=== PATIENT | male | born 1995 | race Caucasian/White ===

== ENCOUNTER 2018-08-12 06:44 | Day surgery (SDC) | payer OTHER, SELFPAY ==
[2014-02-02 13:20] VITALS: BMI 28.8
[2018-08-06 11:36] LABS: AST(SGOT) 18 U/L (15-37); Alanine Aminotransfer ALT/SGPT 32 U/L (16-61); Albumin, Serum 4.4 g/dL (3.2-5.0); Alkaline Phosphatase 83 U/L (45-117); Bilirubin, Direct 0.11 mg/dL (0.00-0.30); Globulin 3.6 g/dL (2.2-4.2)
[2018-08-06 11:37] LABS: Hematocrit 48.4 % (40-54); Hemoglobin 16.6 g/dl (13.0-16.5); Mean Corpuscular Volume 85.8 fL (80-94); Mean Platelet Vol. 10.6 fl (6.2-12.0); Platelet Count 179 K/mm3 (150-450); RBC Distribution Width SD 37.8 fl (35.1-43.9); Red Blood Count 5.64 M/mm3 (4.6-6.2); White Blood Count 5.8 K/mm3 (4.4-11.0)
[2018-08-06 11:38] LABS: Mean Corp Hgb Conc 34.2 g/gl (32-36); Mean Corpuscular Hgb 29.4 pg (27.0-32.0); Scan Indicated on CBC? Y/N NO
[2018-08-06 11:40] LABS: International Normalized Ratio 1.1; Prothrombin Time (Protime)PT. 13.7 SECONDS (11.7-14.9)
[2018-08-06 11:41] LABS: Partial Thromboplast Time 34.7 Seconds (24.1-36.2)
[2018-08-12] VITALS (7 sets, daily range): BP systolic 122–144; BP diastolic 70–98; PULSE 58–72; RESP 16; TEMP 35.9–36.9; O2SAT 92–98; BMI 36.5
[2018-08-12] MEDS: Oxymetazoline 0.05% 1 SPRAY SPRAY.BTL 15 SPRAY (09:25)
--- NOTE | 2018-08-12 09:59 | PCM.OPRPT ---
Report of Operation Date of Procedure: 08/12/18 Pre-Operative Diagnosis: Nasal airway obstruction. Deviated nasal septum. Hypertrophy of the inferior turbinates Post-Operative Diagnosis: Same Surgery/Procedure Performed:: Septoplasty. Resection of posterior end of inferior turbinate bilateral Description of Surgical Findings:: Procedure the patient was placed supine on the operating room table and after satisfactory endotracheal general anesthesia had been obtained sterile head drapes were applied and the patient draped in the usual sterile manner. The nasal cavities were examined and the septum was noted to be totally dislocated into the left nasal cavity. Both inferior turbinates were noted to be markedly hypertrophic. 1% Xylocaine plain mixed with epinephrine was infiltrated into the mucoperichondrium covering the left side of the nasal septum. A left [place] incision was made and the mucoperichondrium elevated from the quadrilateral cartilage and the mucoperiosteum elevated from the perpendicular plate of the ethmoid bone and the vomer the perpendicular plate of ethmoid bone was fractured and moved to the patient's right side for a distance of 1 cm. The septum was detached from the ethmoid bone and from the vomer and moved to the midline. FloSeal was painted on the inner surface of the mucoperichondrium and mucoperiosteum. The mucoperichondrial flap was replaced and sutured with interrupted sutures of 4-0 chromic catgut. Both posterior end of the inferior turbinates were resected with the Bovie. Bleeding was controlled with the Bovie. Cole splints were placed on each side of the nasal septum and anchored to each other with a single mattress suture of 3-0 silk. The nasopharynx was suctioned the procedure was considered terminated and the patient extubated and returned to the recovery room in satisfactory condition. Toby Aguilar MD
[2018-08-12] MEDS: Acetaminophen 325 MG Tablet 650 MG PO (12:05)
[2018-08-12] MEDS: oxyCODONE 5 MG Tablet PO (12:40)
== END 2018-08-12 14:18 | disposition home or self-care (01) ==
LOC: SDC 06:46 → AC 06:46
PROVIDERS: Family Provider Family Medicine; PCP Family Medicine; Referring Provider Otolaryngology Otolaryngology/Facial Plastic Surgery; Visit Provider Otolaryngology Otolaryngology/Facial Plastic Surgery
PROC: (CPT 30520; principal; 2018-08-12 08:10)
DX: J34.2 Deviated nasal septum (principal); J34.3 Hypertrophy of nasal turbinates; F32.9 Major depressive disorder, single episode, unspecified; F41.9 Anxiety disorder, unspecified
CPT/HCPCS: 00160; 30140; 30520; 36415; 80076; 85027; 85610; 85730; J7120; J2405